=== PATIENT | female | born 1985 | race Caucasian/White ===

== ENCOUNTER 2017-03-25 22:03 | Emergency (ER) | payer OTHER ==
[~2017-03-25] VITALS: Ht 165.1 cm; Wt 71.9 kg
[~2017-03-25 22:03] MED LIST: BUSPAR10 MG PO; CIPRO500 MG PO; CLINDAMYCIN HC300 MG PO; DICYCLOMINE HCL10 MG PO; FLEXERIL10 MG PO; LEXAPRO10 MG PO; MEDROL DOSEPAK4 MG PO; Motrin PO; NAPROSYN500 MG PO; NAPROXEN500 MG PO; PROMETHAZINE12.5 M1 PO; ROBITUSSIN AC,T10 ML PO; TAPAZOLE5 MG PO; TYLENOL WITH C1 EACH PO; ZESTORETIC 10-1 EAC1 PO; ZITHROMAX250 MG PO; ZOFRAN4 MG PO; ZOLOFT50 MG PO; Zoloft PO
[2017-03-25 23:43] VITALS: BP 156/110
== END 2017-03-25 23:48 | disposition home or self-care (01) ==
LOC: EME 22:03
DX: I10 Essential (primary) hypertension (principal); R51 Headache; F17.200 Nicotine dependence, unspecified, uncomplicated
CPT/HCPCS: 80048; 84484; 85027; 93005; 99281; 99283

== ENCOUNTER 2017-05-23 14:36 | Emergency (ER) | payer OTHER ==
[~2017-05-23] VITALS: Ht 165.1 cm; Wt 71.8 kg
[2017-05-23 17:02] LABS: HEMATOCRIT 38.5 % (36.0-46.0); MCH 32.1 PG (29.0-34.0); MCHC 35.1 G/DL (30.0-36.0); MCV 91.7 FL (83-99); PLATELET COUNT 160 K/uL (156-360); RBC DIS.WIDTH-CV 12.2 % (11.8-14.6); RBC DIS.WIDTH-SD 40.9 % (39-53); WHITE BLOOD COUNT 5.2 K/uL (4.1-10.2)
[2017-05-23 17:09] LABS: CHLORIDE 104 mEq/L (99-109); POTASSIUM 3.5 mEq/L (3.7-5.4); SODIUM 134 mEq/L (136-147)
[2017-05-23 17:11] LABS: GLUCOSE 97 mg/dL (70-99)
[2017-05-23 17:12] LABS: ANION GAP 10 MEQ/L (2-14)
[2017-05-23 17:13] LABS: TOTAL BILIRUBIN 0.5 mg/dL (0.0-1.0)
[2017-05-23 17:15] LABS: ALKALINE PHOSPHATASE 58 IU/L (3-129); GFR ESTIMATE (CALCULATED) > 59 mL/min/
[2017-05-23 17:16] LABS: UREA NITROGEN (BUN) 9 mg/dL (9-23)
[2017-05-23 17:45] LABS: QUANTITATIVE HCG 132183.2 MIU/ML
[2017-05-23] MEDS ORDERED: PROCARDIA XL30 MG PO (18:49)
[2017-05-23 19:16] VITALS: BP 161/101
== END 2017-05-23 19:24 | disposition home or self-care (01) ==
LOC: EME 14:36
PROVIDERS: Emergency Medicine
DX: O26.891 Other specified pregnancy related conditions, first trimester (principal); R51 Headache; O10.911 Unspecified pre-existing hypertension complicating pregnancy, first trimester; Z3A.09 9 weeks gestation of pregnancy; O99.331 Smoking (tobacco) complicating pregnancy, first trimester; F17.200 Nicotine dependence, unspecified, uncomplicated; Z88.1 Allergy status to other antibiotic agents
CPT/HCPCS: 80053; 81003; 84702; 85027; 99281; 99285; J7030

== ENCOUNTER 2017-08-30 13:01 | Outpatient (CLI) | payer OTHER ==
[~2017-08-30] VITALS: Ht 165.1 cm; Wt 72.0 kg
[2017-08-30] VITALS (10 sets, daily range): BP systolic 128–156; BP diastolic 66–89
[~2017-08-30 13:01] MED LIST changes: +PROCARDIA XL30 MG PO
[2017-08-30 14:39] LABS: BASOPHIL (%) 0.3 % (0-1); EOSINOPHIL (%) 0.7 % (0-5); EOSINOPHIL COUNT 0.1 K/uL (0-0.3); HEMATOCRIT 36.3 % (36.0-46.0); HEMOGLOBIN 12.3 G/DL (11.9-15.5); IMMATURE GRANULOCYTE (%) 0.8 % (0.0-0.7); LYMPHOCYTE COUNT 1.8 K/uL (1.0-2.8); MCH 31.9 PG (29.0-34.0); MCHC 33.9 G/DL (30.0-36.0); MONOCYTE (%) 3.3 % (3-12); MONOCYTE COUNT 0.4 K/uL (0-0.8); NEUTROPHIL (%) 78.9 % (45-76); NEUTROPHIL COUNT 8.9 K/uL (1.8-6.4); PLATELET COUNT 192 K/uL (156-360); RBC DIS.WIDTH-CV 12.7 % (11.8-14.6); RBC DIS.WIDTH-SD 43.8 % (39-53); RED BLOOD COUNT 3.86 M/uL (3.80-5.20); WHITE BLOOD COUNT 11.3 K/uL (4.1-10.2)
[2017-08-30 15:00] LABS: ALBUMIN 3.3 G/DL (3.2-4.8); ALKALINE PHOSPHATASE 54 IU/L (3-129); ALT (GPT) 6 IU/L (3-49); AST (GOT) 11 IU/L (2-34); CHLORIDE 107 MEQ/L (99-109); CREATININE 0.6 MG/DL (0.6-1.3); GFR ESTIMATE (CALCULATED) > 59 mL/min/; GLUCOSE 84 mg/dL (70-99); POTASSIUM 3.8 MEQ/L (3.7-5.4); SODIUM 136 MEQ/L (136-147); TOTAL BILIRUBIN 0.4 MG/DL (0.0-1.0); TOTAL PROTEIN 5.8 G/DL (6.4-8.3); UREA NITROGEN (BUN) 10 mg/dL (9-23)
[2017-08-30 15:21] LABS: APPEARANCE SL.HAZY ((CLEAR)); BILIRUBIN NEGATIVE; BLOOD SMALL; COLOR YELLOW ((YELLOW)); GLUCOSE (STRIP) NEGATIVE; KETONES 5; LEUKOCYTES NEGATIVE; NITRITE NEGATIVE; PROTEIN (STRIP) 30; SPECIFIC GRAVITY 1.023 (1.000-1.030)
[2017-08-30 15:30] LABS: COCAINE NEGATIVE (150 ng/mL); PHENCYCLIDINE NEGATIVE (25 ng/mL); THC CANNABINOIDS NEGATIVE (50 ng/mL)
[2017-08-30 15:31] LABS: AMPHETAMINE NEGATIVE (500 ng/mL); BARBITURATES NEGATIVE (200 ng/mL); BENZODIAZEPINES NEGATIVE (150 ng/mL); BUPRENORPHINE NEGATIVE (10 ng/mL); METHADONE NEGATIVE (200 ng/mL); METHAMPHETAMINE NEGATIVE (500 ng/mL); OPIATES (MORPHINE) NEGATIVE (100 ng/mL); OXYCODONE PRESUMPTIVE POSITIVE (100 ng/mL); PROPOXYPHENE NEGATIVE (300 ng/mL); TRICYCLIC ANTIDEPRESSANTS PRESUMPTIVE POSITIVE (300 ng/mL)
[2017-08-30 15:53] LABS: EPITHELIAL CELLS 2+ /HPF; MUCUS 3+ /LPF
[2017-08-30 15:54] LABS: BACTERIA RARE /HPF; CALCIUM OXALATE CRYSTALS 2+ /HPF; RED BLOOD CELLS 0-5 /HPF (0-5); UCUL ADDED? NO; WHITE BLOOD CELLS RARE /HPF (0-5)
[2017-08-30 16:15] LABS: LACTATE DEHYDROGENASE 61 IU/L (20-246); URIC ACID 3.5 mg/dL (3.1-9.2)
[2017-08-30 17:48] LABS: UR CREATININE CONCENTRATION 259.2 MG/DL
[2017-08-30] MEDS ORDERED: NORMODYNE,TRAN300 MG PO (18:36)
== END 2017-08-30 18:45 | disposition home or self-care (01) ==
LOC: LDRP-OP 13:01 → 2WEST 13:02
PROVIDERS: Advanced Practice Midwife
DX: O16.2 Unspecified maternal hypertension, second trimester (principal); Z3A.22 22 weeks gestation of pregnancy; Z88.8 Allergy status to other drugs, medicaments and biological substances
CPT/HCPCS: 59025; 80053; 80365 90; 81003; 82570; 83615; 84156; 84550; 85025; G0378

== ENCOUNTER → 2017-11-15 | Outpatient (CLI) | payer OTHER ==
[~2017-11-15] MED LIST changes: +NORMODYNE,TRAN300 MG PO
== END | disposition home or self-care (01) ==
LOC: CDC 09:14
DX: R94.31 Abnormal electrocardiogram [ECG] [EKG] (principal)
CPT/HCPCS: 93000

== ENCOUNTER 2017-12-05 11:19 | Inpatient (IN) | payer OTHER ==
[2017-12-05] VITALS (63 sets, daily range): BP systolic 110–210; BP diastolic 56–133
[~2017-12-05] VITALS: Ht 165.1 cm; Wt 75.0 kg
[2017-12-05] MEDS ORDERED: PRENATAL TABLE1 EAC3 PO (12:01)
[2017-12-05 12:25] LABS: BASOPHIL (%) 0.3 % (0-1); EOSINOPHIL (%) 0.4 % (0-5); EOSINOPHIL COUNT 0.1 K/uL (0-0.3); HEMATOCRIT 38.5 % (36.0-46.0); HEMOGLOBIN 13.3 G/DL (11.9-15.5); IMMATURE GRANULOCYTE (%) 1.1 % (0.0-0.7); LYMPHOCYTE COUNT 2.7 K/uL (1.0-2.8); MCHC 34.5 G/DL (30.0-36.0); MCV 95.5 FL (83-99); MONOCYTE (%) 4.4 % (3-12); MONOCYTE COUNT 0.6 K/uL (0-0.8); NEUTROPHIL (%) 74.8 % (45-76); NEUTROPHIL COUNT 10.5 K/uL (1.8-6.4); PLATELET COUNT 247 K/uL (156-360); RBC DIS.WIDTH-CV 13.2 % (11.8-14.6); RBC DIS.WIDTH-SD 46.4 % (39-53); RED BLOOD COUNT 4.03 M/uL (3.80-5.20); WHITE BLOOD COUNT 14.1 K/uL (4.1-10.2)
[2017-12-05 12:48] LABS: PTT 26.2 SEC (25-37)
[2017-12-05 12:54] LABS: APPEARANCE CLEAR ((CLEAR)); BILIRUBIN NEGATIVE; BLOOD NEGATIVE; COLOR YELLOW ((YELLOW)); GLUCOSE (STRIP) NEGATIVE; KETONES NEGATIVE; LEUKOCYTES NEGATIVE; NITRITE NEGATIVE; PROTEIN (STRIP) NEGATIVE; UCUL ADDED? NO; UROBILINOGEN 0.2 MG/DL (0.2-1.0)
[2017-12-05 12:55] LABS: ALBUMIN 3.6 G/DL (3.2-4.8); ALKALINE PHOSPHATASE 169 IU/L (3-129); ALT (GPT) 7 IU/L (3-49); AST (GOT) 14 IU/L (2-34); CHLORIDE 108 MEQ/L (99-109); CREATININE 0.7 MG/DL (0.6-1.3); GFR ESTIMATE (CALCULATED) > 59 mL/min/; GLUCOSE 78 mg/dL (70-99); POTASSIUM 3.9 MEQ/L (3.7-5.4); SODIUM 137 MEQ/L (136-147); TOTAL BILIRUBIN 0.4 MG/DL (0.0-1.0); TOTAL PROTEIN 6.5 G/DL (6.4-8.3); UREA NITROGEN (BUN) 14 mg/dL (9-23)
[2017-12-05 12:56] LABS: UR CREATININE CONCENTRATION 153.6 MG/DL
[2017-12-05 13:58] LABS: AMPHETAMINE NEGATIVE (500 ng/mL); BARBITURATES NEGATIVE (200 ng/mL); BENZODIAZEPINES NEGATIVE (150 ng/mL); BUPRENORPHINE NEGATIVE (10 ng/mL); COCAINE NEGATIVE (150 ng/mL); METHADONE NEGATIVE (200 ng/mL); METHAMPHETAMINE NEGATIVE (500 ng/mL); OPIATES (MORPHINE) NEGATIVE (100 ng/mL); OXYCODONE NEGATIVE (100 ng/mL); PHENCYCLIDINE NEGATIVE (25 ng/mL); PROPOXYPHENE NEGATIVE (300 ng/mL); THC CANNABINOIDS NEGATIVE (50 ng/mL); TRICYCLIC ANTIDEPRESSANTS NEGATIVE (300 ng/mL)
[2017-12-06] VITALS (52 sets, daily range): BP systolic 110–187; BP diastolic 56–105
[2017-12-07] VITALS (27 sets, daily range): BP systolic 114–171; BP diastolic 61–102
[2017-12-07 06:46] LABS: BASOPHIL (%) 0.3 % (0-1); EOSINOPHIL (%) 0.3 % (0-5); HEMATOCRIT 33.5 % (36.0-46.0); IMMATURE GRANULOCYTE (%) 0.6 % (0.0-0.7); LYMPHOCYTE (%) 21.7 % (15-42); LYMPHOCYTE COUNT 3.2 K/uL (1.0-2.8); MCH 31.8 PG (29.0-34.0); MCHC 33.1 G/DL (30.0-36.0); MONOCYTE (%) 6.3 % (3-12); MONOCYTE COUNT 0.9 K/uL (0-0.8); NEUTROPHIL (%) 70.8 % (45-76); NEUTROPHIL COUNT 10.3 K/uL (1.8-6.4); PLATELET COUNT 258 K/uL (156-360); RBC DIS.WIDTH-CV 13.3 % (11.8-14.6); RBC DIS.WIDTH-SD 46.5 % (39-53); RED BLOOD COUNT 3.49 M/uL (3.80-5.20); WHITE BLOOD COUNT 14.6 K/uL (4.1-10.2)
[2017-12-07 06:47] LABS: HEMOGLOBIN 11.1 G/DL (11.9-15.5)
[2017-12-08] VITALS (17 sets, daily range): BP systolic 140–207; BP diastolic 74–107
[2017-12-08 09:06] LABS: HEMATOCRIT 31.2 % (36.0-46.0); HEMOGLOBIN 10.4 G/DL (11.9-15.5); MCH 32.3 PG (29.0-34.0); MCHC 33.3 G/DL (30.0-36.0); MCV 96.9 FL (83-99); PLATELET COUNT 223 K/uL (156-360); RBC DIS.WIDTH-CV 13.2 % (11.8-14.6); RBC DIS.WIDTH-SD 47.5 % (39-53); RED BLOOD COUNT 3.22 M/uL (3.80-5.20); WHITE BLOOD COUNT 12.4 K/uL (4.1-10.2)
[2017-12-08] MEDS ORDERED: NIFEDIPINE ER30 MG PO (09:32)
[2017-12-08] MEDS ORDERED: IBUPROFEN800 MG PO (09:32)
[2017-12-08] MEDS ORDERED: LABETALOL HCL200 MG PO (09:32)
[2017-12-08 09:35] LABS: ALBUMIN 2.9 G/DL (3.2-4.8); ALT (GPT) 8 IU/L (3-49); AST (GOT) 12 IU/L (2-34); CHLORIDE 110 MEQ/L (99-109); CREATININE 0.6 MG/DL (0.6-1.3); GFR ESTIMATE (CALCULATED) > 59 mL/min/; GLUCOSE 81 mg/dL (70-99); POTASSIUM 4.4 MEQ/L (3.7-5.4); SODIUM 139 MEQ/L (136-147); TOTAL BILIRUBIN 0.4 MG/DL (0.0-1.0); UREA NITROGEN (BUN) 8 mg/dL (9-23)
[2017-12-08 10:47] LABS: ALKALINE PHOSPHATASE 105 IU/L (3-129); TOTAL PROTEIN 5.3 G/DL (6.4-8.3)
== END 2017-12-08 15:17 | disposition home or self-care (01) | DRG 774 ==
LOC: LDRP-OP → 2WEST 11:20 → LDRP-OP 01-29 20:29
PROVIDERS: Advanced Practice Midwife; Obstetrics & Gynecology
PROC: 3E033VJ Introduction of Other Hormone into Peripheral Vein, Percutaneous Approach (ICD-10-PCS; principal; 2017-12-06)
PROC: 0UQG7ZZ Repair Vagina, Via Natural or Artificial Opening (ICD-10-PCS; principal; 2017-12-06)
PROC: 10907ZC Drainage of Amniotic Fluid, Therapeutic from Products of Conception, Via Natural or Artificial Opening (ICD-10-PCS; principal; 2017-12-06)
PROC: 3E0R3BZ Introduction of Anesthetic Agent into Spinal Canal, Percutaneous Approach (ICD-10-PCS; principal; 2017-12-06)
PROC: 00HU33Z Insertion of Infusion Device into Spinal Canal, Percutaneous Approach (ICD-10-PCS; principal; 2017-12-06)
PROC: 10E0XZZ Delivery of Products of Conception, External Approach (ICD-10-PCS; principal; 2017-12-06)
DX: O11.4 Pre-existing hypertension with pre-eclampsia, complicating childbirth (principal); O10.92 Unspecified pre-existing hypertension complicating childbirth; O71.4 Obstetric high vaginal laceration alone; O60.14X0 Preterm labor third trimester with preterm delivery third trimester, not applicable or unspecified; O36.5930 Maternal care for other known or suspected poor fetal growth, third trimester, not applicable or unspecified; O99.334 Smoking (tobacco) complicating childbirth; F17.200 Nicotine dependence, unspecified, uncomplicated; Z3A.36 36 weeks gestation of pregnancy; Z37.0 Single live birth; Z90.721 Acquired absence of ovaries, unilateral
CPT/HCPCS: 80053; 81003; 82570; 83735; 84156; 84550; 85025; 85027; 85610; 85730; 86850; 86900; 86901; 88307; C1755; G0378; J0360; J0702; J3010; J3475; J7120